=== PATIENT | female | born 1955 | race Caucasian/White ===

== ENCOUNTER 2022-06-19 09:10 | Emergency (ER) | payer MEDICARE ==
[2022-06-19] MEDS ORDERED: Iopamidol 612 MG/ML 100 ML Bottle IV ONE (11:20)
[2022-07-15 05:00] LABS: ESTIMATED GFR 80 mL/min (>60)
== END 2022-06-19 12:14 | disposition home or self-care (01) ==
LOC: JP.ED 09:10
DX: K57.32 Diverticulitis of large intestine without perforation or abscess without bleeding (principal); N39.0 Urinary tract infection, site not specified
CPT/HCPCS: 36415; 74177; 80053; 81001; 83690; 85025; 99284; Q9967